=== PATIENT | female | born 1985 | race Hispanic/Latino ===

== ENCOUNTER 2024-06-22 16:58 | Emergency (ER) | payer OTHER ==
[~2024-06-22] VITALS: Ht 127 cm; Wt 70.1 kg
[2024-06-22 17:43] LABS: BILIRUBIN, URINE NEGATIVE (negative); BLOOD/HGB, URINE NEGATIVE (Negative); KETONE, URINE NEGATIVE (Negative); LEUK ESTERASE, URINE NEGATIVE (negative); NITRITE, URINE POSITIVE (negative)
[2024-06-22 17:48] LABS: RED BLOOD CELLS, URINE 0-1 /hpf (0-5)
[2024-06-22 17:49] LABS: BACTERIA, URINE 2+ /hpf (negative); CASTS, URINE NONE SEEN \\lpf; COLLECTION TYPE, URINE CLEAN CATCH; CRYSTALS, URINE NONE SEEN (0-1+); EPITHELIAL CELLS, URINE SQUAMOUS 1+ /lpf (0-1+); REFLEX CULTURE, URINE Yes (No)
[2024-06-22 17:57] LABS: SOURCE, WET MOUNT VAGINAL
[2024-06-22 17:59] LABS: BACTERIA, WET MOUNT 2+ (NEGATIVE); CLUE CELLS, WET MOUNT NEGATIVE (NEGATIVE); EPITHELIAL CELLS, WET MOUNT 1+ (NEGATIVE); RBC, WET MOUNT NEGATIVE (NEGATIVE); TRICHOMONAS, WET MOUNT NEGATIVE (NEGATIVE); WBC, WET MOUNT 1+ (NEGATIVE); YEAST, WET MOUNT NEGATIVE (NEGATIVE)
[2024-06-22] MEDS ORDERED: [UNRECOGNIZED DRUG - OTHER] VAGINAL (18:52)
[2024-06-22 19:23] LABS: N. GONORRRHOEAE BY PCR NOT DETECTED (NOT DETECT)
[2024-06-22 20:02] VITALS: BP 112/68
== END 2024-06-22 20:07 | disposition home or self-care (01) ==
LOC: ED 16:58
PROVIDERS: Emergency Medicine
DX: N76.0 Acute vaginitis (principal); Z88.1 Allergy status to other antibiotic agents
CPT/HCPCS: 81001; 84703; 87077; 87088; 87186; 87210; 99283